=== PATIENT | male | born 1970 | race Caucasian/White ===

== ENCOUNTER 2017-09-11 17:21 | Observation (INO) | payer OTHER ==
[~2017-09-11] VITALS: Ht 175.3 cm; Wt 115.7 kg
[2017-09-11] MEDS ORDERED: ONDANSETRON (ODT) 4 MG TAB ODT STA (17:36)
--- NOTE | 2017-09-11 19:13 | RADRPT ---
PROCEDURE: X-Ray Soft Tissue Neck. CLINICAL INDICATION: Neck pain. Foreign body sensation. Possible chicken bone foreign body. TECHNIQUE: Two views. Frontal and lateral. COMPARISON: No prior studies available for comparison. FINDINGS: The epiglottis is not enlarged. There is no radiopaque foreign body. The prevertebral soft tissues are normal. There are degenerative changes of the the cervical spine with disc space narrowing and osteophytes a t C4-5 and C5-6. The lung apices are normal. IMPRESSION: 1. Degenerative changes at C4-5 and C5-6. 2. No radiopaque foreign body. 3. Otherwise unremarkable radiographs of the soft tissues of the neck. 4. If there is persistent clinical concern regarding a foreign body, correlation with CT scan [place] be considered. RPTAT: QQ .Vignesh Gracia MD, MD Date Time Electronically viewed and signed by .Vignesh Gracia MD, MD on 09/11/2017 19:13 .R/
[2017-09-11] MEDS ORDERED: LIDOCAINE 2% VISC 15 ML CUP PO ONE (19:30)
[2017-09-11] MEDS ORDERED: GLUCAGON 1 MG INJ IM STA (19:44)
--- NOTE | 2017-09-11 21:35 | RADRPT ---
PROCEDURE: CT Neck noncontrast CLINICAL INDICATION: Foreign body TECHNIQUE: Noncontrast CT of the neck was performed. Axial images were obtained through the neck w ith multiplanar reformatted images generated from the axial acquired data. The administered radiatio n dose was CTDI vol = 10.6 mGy, DLP = 256 mGy-cm. One or more of the following dose reduction techn iques were used: automated exposure control, adjustment of the mA and/or kV according to patient siz e and/or use of iterative reconstruction technique. DICOM images are available. COMPARISON: There are no similar studies submitted for comparison. FINDINGS: Evaluation is limited without intravenous contrast. Skull/Brain: The visualized portions of the brain are grossly unremarkable.The visualized orbits are unremarkable. Some mild mucosal thickening is scattered throughout the paranasal sinuses. The bilat eral mastoid air cells are within normal limits. Parotid glands: Unremarkable on this unenhanced examination. Submandibular glands: Unremarkable on this unenhanced examination. Thyroid gland: Unremarkable on this unenhanced examination. Vasculature: Evaluation is limited without intravenous contrast. Lymph nodes: Multiple small lymph nodes are identified in the neck in levels I-V none of which are n ot pathologically enlarged. The lymph nodes are relatively bilateral and symmetric in distribution. Aerodigestive tract: There is streak artifact from dental hardware limiting evaluation of the oral c avity.Evaluation for primary aerodigestive tract lesion is limited without contrast. There is no de finite evidence of aerodigestive tract effacement. Other: The lung apices are unremarkable. Osseous structures: No destructive lytic or blastic osseous lesion is identified. IMPRESSION: No definite mass or fluid collection given limitations. No cervical adenopathy. RPTAT: HIKT .Stanford Girard MD, MD Date Time Electronically viewed and signed by .Stanford Girard MD, MD on 09/11/2017 21:35 .T/
[2017-09-11] MEDS ORDERED: DEXTROSE 5%-0.45% NACL 1,000 ML IV ONE (22:30)
[2017-09-11] MEDS ORDERED: HYDROmorphONE 1 MG/ML SYG IV STA (22:40)
[2017-09-11] MEDS ORDERED: ONDANSETRON 4 MG INJ IV STA (22:40)
[2017-09-11] MEDS ORDERED: METOCLOPRAMIDE 10 MG INJ IV ONE (23:00)
--- NOTE | 2017-09-11 23:45 | ERD ---
ER Documentation Chief Complaint Chief Complaint Complains of foreign body in the throat (MICHELLE KEARNS NP) HPI 47-year-old male complaining of foreign body in his throat. Patient stated that he was eating at work about 10 AM this morning when he felt something stuck in his throat. He thought that may be a piece of chicken bone. Since then, he is unable to eat or drink. He vomits even when he swallows saliva. Shortness of breath. (MICHELLE KEARNS NP) ROS All systems reviewed and are negative except as per history of present illness. (MICHELLE KEARNS NP) Medications Home Meds Active Scripts Metoclopramide Hcl* (Metoclopramide Hcl*) 10 Mg Tablet, 10 MG PO Q6, #120 TAB AC MEALS and HS. Prov:DELMY OHARA NP 09/12/17 Pantoprazole* (Pantoprazole*) 40 Mg Tablet.dr, 40 MG PO BID@06,18, #60 TAB Prov:DELMY OHARA NP 09/12/17 Allergies Allergies: Coded Allergies: morphine (Verified Allergy, Unknown, 09/11/17) PMhx/Soc Medical and Surgical Hx: pt denies Medical Hx History of Surgery: Yes (leg, knee) Anesthesia Reaction: No Hx Neurological Disorder: No Hx Respiratory Disorders: No Hx Cardiac Disorders: No Hx Psychiatric Problems: No Hx Alcohol Use: Yes (social drinker) Hx Substance Use: No Hx Tobacco Use: No (MICHELLE KEARNS NP) Physical Exam Vitals Vital Signs Date Time Temp Pulse Resp B/P Pulse Ox O2 Delivery O2 Flow Rate FiO2 09/11/17 23:00 99.4 92 19 146/99 92 Room Air 09/11/17 17:29 98.3 109 20 173/108 98 (JODIE SHEPHERD DO) Physical Exam General: Well-developed, well-nourished, conscious and coherent, in no distress. Skin: Warm and dry without rash, good texture and turgor Head: Normocephalic without evidence of trauma Eyes: Sclera and conjunctivae normal; pupils equal, round, and reactive to light; extraocular movements are intact Mouth/throat: Mucous membranes are moist. Posterior pharynx clear without erythema or exudates Neck: Supple without meningismus or adenopathy. Carotids are equal. Trachea midline. No bruits or JVD Chest: Normal AP diameter. Good expansion without retractions. Nontender. Lungs are clear to auscultate bilaterally with good tidal volume Heart: Regular rate and rhythm. No murmur, rub, or gallops heard Abdomen: Soft and nontender without masses, guarding, or rebound. Bowel sounds are active. No hepatosplenomegaly Extremities: Full range of motion. Good strength bilaterally. No clubbing, cyanosis, or edema. Peripheral pulses are intact. Sensation intact Neuro: Alert and oriented 4, GCS 15. Cranial nerves grossly intact. Motor and sensory exams nonfocal. Moves all extremities. Speech clear. Gait normal (MICHELLE KEARNS NP) Result Diagram: 09/12/17 0430 09/12/17 0432 Results 24 hrs Current Medications Medications (Trade) Dose Ordered Sig/Aylin Route PRN Reason Start Time Stop Time Status Last Admin Dose Admin Ondansetron HCl (Zofran Odt) 4 mg ONCE STAT ODT 09/11/17 17:36 09/11/17 17:41 DC 09/11/17 17:52 Lidocaine (Xylocaine (Viscous)) 15 ml ONCE ONCE PO 09/11/17 19:30 09/11/17 19:31 DC 09/11/17 19:34 Glucagon 1 mg 1 mg ONCE STAT IM 09/11/17 19:44 09/11/17 19:45 DC 09/11/17 20:03 Dextrose/Sodium Chloride (D5-1/2ns) 1,000 ml @ 1,000 mls/ 60 min Q1H ONCE IV 09/11/17 22:30 09/11/17 23:29 DC 09/11/17 22:53 Hydromorphone HCl (Dilaudid) 1 mg ONCE STAT IV 09/11/17 22:40 09/11/17 22:42 DC 09/11/17 22:53 Metoclopramide HCl (Reglan) 10 mg ONCE ONCE IV 09/11/17 23:00 09/11/17 23:01 DC 09/11/17 22:53 Ondansetron HCl (Zofran Inj) 4 mg ONCE STAT IV 09/11/17 22:40 09/11/17 22:42 DC 09/11/17 22:53 Ondansetron HCl (Zofran Inj) 4 mg BRIDGE ORDER PRN IV NAUSEA AND/OR VOMITING 09/12/17 01:00 09/12/17 15:25 DC Acetaminophen (Tylenol Tab) 650 mg ER BRIDGE PRN PO MILD PAIN/FEVER 09/12/17 01:00 09/12/17 15:25 DC (CORAJODIE ) Results 24 hrs PROCEDURE: X-Ray Soft Tissue Neck. CLINICAL INDICATION: Neck pain. Foreign body sensation. Possible chicken bone foreign body. TECHNIQUE: Two views. Frontal and lateral. COMPARISON: No prior studies available for comparison. FINDINGS: The epiglottis is not enlarged. There is no radiopaque foreign body. The prevertebral soft tissues are normal. There are degenerative changes of the the cervical spine with disc space narrowing and osteophytes at C4-5 and C5-6. The lung apices are normal. IMPRESSION: 1. Degenerative changes at C4-5 and C5-6. 2. No radiopaque foreign body. 3. Otherwise unremarkable radiographs of the soft tissues of the neck. 4. If there is persistent clinical concern regarding a foreign body, correlation with CT scan should be considered. RPTAT: QQ .Vignesh Gracia MD, MD Date Time Electronically viewed and signed by .Vignesh Gracia MD, on 09/11/2017 19:13 .R/ CC: MICHELLE KEARNS NP PROCEDURE: CT Neck noncontrast CLINICAL INDICATION: Foreign body TECHNIQUE: Noncontrast CT of the neck was performed. Axial images were obtained through the neck with multiplanar reformatted images generated from the axial acquired data. The administered radiation dose was CTDI vol = 10.6 mGy, DLP = 256 mGy-cm. One or more of the following dose reduction techniques were used: automated exposure control, adjustment of the mA and/or kV according to patient size and/or use of iterative reconstruction technique. DICOM images are available. COMPARISON: There are no similar studies submitted for comparison. FINDINGS: Evaluation is limited without intravenous contrast. Skull/Brain: The visualized portions of the brain are grossly unremarkable.The visualized orbits are unremarkable. Some mild mucosal thickening is scattered throughout the paranasal sinuses. The bilateral mastoid air cells are within normal limits. Parotid glands: Unremarkable on this unenhanced examination. Submandibular glands: Unremarkable on this unenhanced examination. Thyroid gland: Unremarkable on this unenhanced examination. Vasculature: Evaluation is limited without intravenous contrast. Lymph nodes: Multiple small lymph nodes are identified in the neck in levels I- V none of which are not pathologically enlarged. The lymph nodes are relatively bilateral and symmetric in distribution. Aerodigestive tract: There is streak artifact from dental hardware limiting evaluation of the oral cavity.Evaluation for primary aerodigestive tract lesion is limited without contrast. There is no definite evidence of aerodigestive tract effacement. Other: The lung apices are unremarkable. Osseous structures: No destructive lytic or blastic osseous lesion is identified. IMPRESSION: No definite mass or fluid collection given limitations. No cervical adenopathy. RPTAT: HIKT .Stanford Girard MD, MD Date Time Electronically viewed and signed by .Stanford Girard MD, MD on 09/11/2017 21:35 .T/ CC: MICHELLE KEARNS NP (MICHELLE KEARNS NP) Procedures/MDM 47-year-old male present ED with foreign body sensation in his throat. Both x- ray and CT of the next soft tissue are negative for foreign bodies. Patient is noted to be retching almost continuously. Zofran 4 mg ODT to the patient initially, had no effect. On the advice of Dr. Carter, glucagon 1 mg IM is given. Patient is esophageal spasm had improved after glucagon for some time. But he returned. Zofran and Reglan IV, along with Dilaudid 1 mg IV is then given to the patient on the advice of Dr. Shepherd. Patient appeared to be comfortable at this time. Although imaging is negative, I do not feel comfortable to send patient home because of his esophageal spasm. Patient may still have a esophageal foreign body that is outside the range of the CT scan. I discussed patient with Dr. Shepherd, who also saw the patient. Dr. Shepherd agrees that we need to admit the patient. (MICHELLE KEARNS NP) Evaluated this patient. He is able to swallow his own secretions sometimes we does then vomiting. Negative imaging was still sensation and pain as if something is stuck in his esophagus. Going to admit him for evaluation by endoscopy by [employer] teacher tomorrow. Placed a call to Dr. Granda. I also added 4 mg of morphine, 4 mg of Zofran, 10 mg of Reglan. Feels better but still has the sensation of the foreign body. Notified Dr. Crockett of this will be admitting him to the medical surgical floor.. I followed up on this case and see that the endoscopy has found severe erosive esophagitis. This was causing the foreign body sensation and it is fortunate this was diagnosed in order to begin treating it before significant morbidity began. (JODIE SHEPHERD DO) Departure Diagnosis: Primary Impression: Esophageal foreign body Encounter type: initial encounter Qualified Code: T18.108A - Foreign body in esophagus, initial encounter Condition: Stable MICHELLE KEARNS NP Sep 11, 2017 23:44 JODIE SHEPHERD DO Sep 12, 2017 01:02
[2017-09-12] VITALS (10 sets, daily range): BP systolic 113–148; BP diastolic 71–91; PULSE 64–74; RESP 15–20; TEMP 98; Ht 175.3 cm; Wt 115.7 kg
[2017-09-12] MEDS ORDERED: ACETAMINOPHEN 325 MG TAB PO PRN (01:00)
[2017-09-12] MEDS ORDERED: ONDANSETRON 4 MG INJ IV PRN ×2 (01:00→02:00)
[2017-09-12] MEDS ORDERED: ACETAMINOPHEN 650 MG SUPP PR PRN (02:00)
[2017-09-12] MEDS ORDERED: NACL 0.9% 3 ML SYG IV SCH (02:00)
[2017-09-12] MEDS ORDERED: morphine 2 MG INJ IV PRN (02:00)
[2017-09-12] MEDS: SOD CHLORIDE 0.9% 1,000 ML IV SCH ×2 (02:28→13:42)
[2017-09-12] MEDS ORDERED: KETOROLAC 30 MG INJ IV ONE (02:41)
[2017-09-12] MEDS ORDERED: VITAMIN A & D 5 GM OINT PACKET TOP ONE (02:51)
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
[2017-09-12 05:19] LABS: BASOPHIL # 0.1 10^3/ul (0.0-0.1); BASOPHILS % 0.7 % (0.0-2.0); EOSINOPHILS # 0.1 10^3/ul (0.0-0.5); EOSINOPHILS % 1.4 % (0.0-7.0); LYMPHOCYTES % 19.3 % (15.0-51.0); MEAN CORPUSCULAR HEMOGLOBIN 31.6 pg (29.0-33.0); MEAN CORPUSCULAR HGB CONC 34.1 g/dl (32.0-37.0); MEAN CORPUSCULAR VOLUME 92.6 fl (82.0-101.0); MONOCYTE # 0.9 10^3/ul (0.3-0.9); MONOCYTES % 8.4 % (0.0-11.0); NEUTROPHIL # 7.2 10^3/ul (1.6-7.5); PLATELET COUNT 265 10^3/UL (140-415); RED BLOOD COUNT 4.75 10^6/ul (4.70-6.10); RED CELL DISTRIBUTION WIDTH 12.1 % (11.5-14.5); WHITE BLOOD COUNT 10.3 10^3/ul (4.8-10.8)
[2017-09-12 05:40] LABS: ALBUMIN 4.2 g/dl (3.3-4.9); ALBUMIN/GLOBULIN RATIO 1.5; BILIRUBIN,INDIRECT 0.5 mg/dl (0-1.1); BILIRUBIN,TOTAL 0.5 mg/dl (0.2-1.3); CALCIUM 8.9 mg/dl (8.4-10.2); CHOL/HDL RATIO 4.9 RATIO; CREATININE 1.04 mg/dl (0.61-1.24); POTASSIUM 3.9 mmol/L (3.5-5.1)
[2017-09-12] MEDS ORDERED: PANTOPRAZOLE 40 MG INJ IV SCH (06:00)
[2017-09-12 06:59] LABS: THYROID STIMULATING HORMONE 2.02 MIU/L (0.465-4.680)
[2017-09-12] MEDS ORDERED: KETOROLAC 15 MG INJ IV PRN (07:00)
[2017-09-12 07:44] LABS: INR 1.04; PROTIME 13.6 Sec (12.2-14.2); PT RATIO 1.1
[2017-09-12 07:45] LABS: PARTIAL THROMBOPLASTIN TIME 24.1 Sec (25.0-35.0)
[2017-09-12] MEDS ORDERED: SUGAMMADEX SODIUM 200 MG/2 ML VIAL IV ONE (09:20)
[2017-09-12] MEDS ORDERED: PROPOFOL 40 ML ONE (09:28)
[2017-09-12] MEDS ORDERED: LIDOCAINE 2% (SDV) 5 ML INJ ONE (09:28)
[2017-09-12] MEDS ORDERED: ROCURONIUM 50 MG INJ ONE (09:28)
[2017-09-12] MEDS ORDERED: SUCCINYLCHOLINE CHLORIDE 100 MG/5 ML SYG IV ONE (09:28)
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
--- NOTE | 2017-09-12 09:42 | HPN ---
Date/Time of Note Date/Time of Note DATE: 09/12/17 TIME: 09:42 Interval H&P Admission Note Pt. seen H&P reviewed: No system changes AUNG FISCHER MD Sep 12, 2017 09:42
--- NOTE | 2017-09-12 09:53 | OPPN ---
Date/Time of Note Date/Time of Note DATE: 09/12/17 TIME: 09:48 Proc Note GI Procedure Date 09/12/17 Indication: other (Dysphagia) Pre-procedure Diagnosis Dysphagia/foreign body in the esophagus Post-procedure Diagnosis Impression: No foreign body found in the esophagus Severe erosive/ulcerative esophagitis. Rule out Pulido's esophagus. Biopsies obtained Rule out eosinophilic esophagitis. Biopsies obtained Small hiatal hernia Moderate gastritis. Rule out H. pylori infection. Biopsies obtained Otherwise normal EGD. Plan: PPI therapy i.e. pantoprazole 40 mg twice daily Reglan 10 mg 4 times daily before meals and at bedtime Review pathology Follow-up EGD in 8 weeks to assess healing of esophageal ulcerations Advance diet as tolerated and if tolerated patient appears safe for outpatient management . Procedure Performed: Endoscopy (With biopsies) Surgeon AUNG FISCHER MD See signature line Store Manager none Anesthesia Type: general Anesthesiologist: MAGDY TORRES Tourniquet Time none EBL none Transfusion required none Biopsy 1: Gastric body and antrum Biopsy 2: Distal esophagus Biopsy 3: Midesophagus Grafts/Implants none Tubes/Drains none Complication(s) none Disposition: PACU Procedure Description Preoperative Diagnosis: After informed consent, with the patient/relatives understanding the procedure, its indications, potential risks and complications, including but not limited to : allergic reaction, bleeding, perforation or infection, and after all pertinent questions were answered to the patients satisfaction, the patient/ relatives signed witnessed informed consent. Following this, premedication was administered slowly IV push under careful cardiovascular and respiratory monitoring with pulse oximetry, automatic blood pressure, and radiation monitor. Once the sedative effect was achieved the patient was place in the left lateral decubitus, the panendoscope was introduced and advanced under visual control. Careful examination of the upper gastrointestinal tract, both on insertion as well as withdrawal of the instrument disclosing the following findings: ESOPHAGUS: the mucosa of the entire esophagus was carefully examined and showed the following findings: No foreign body was found in the esophagus. There is severe erythema edema and linear erosions/ulcerations in the distal third of the esophagus. Biopsies were obtained to rule out Pulido's esophagus. There is also a multi-ring appearance in the body of the esophagus raising possibility of eosinophilic esophagitis. Biopsies were obtained. Otherwise the mucosa appears within normal limits. There is no evidence of varices, neoplasm, or stricture. Small hiatal Hernia identified. STOMACH: Upon entrance to the stomach air was insufflated, the gastric howard distended normally. The mucosa of the fundus, body and antrum of the stomach was carefully examined both head-on and on retroflexion, and showed the following findings: There is moderate erythema in the mucosa of the antrum of the stomach. Biopsies were obtained to rule out H. pylori infection. Biopsies obtained. Otherwise the mucosa appears within normal limits with no abnormalities. There is no evidence of ulcers or neoplasm. PYLORUS: The pylorus was carefully examined and showed the following findings: the pylorus appears patent and within normal limits, with no evidence of gastric outlet obstruction. DUODENUM: The duodenal mucosa was carefully examined in the duodenal bulb as well as the second portion of the duodenum and showed the following findings: the mucosa appears unremarkable with no evidence of duodenitis, ulcer or neoplasm. Copies To: CC: AUNG FISCHER MD, MORDO MD Sep 12, 2017 09:53
[2017-09-12] MEDS ORDERED: METOCLOPRAMIDE 10 MG TAB PO SCH (12:00)
--- NOTE | 2017-09-12 13:02 | PDOCDIS ---
Discharge Instructions DIAGNOSIS Discharge Diagnosis Severe erosive/ulcerative esophagitis. Moderate gastritis. CONDITION Patient Condition: Stable HOME CARE INSTRUCTIONS: Diet Instructions: Regular FOLLOW UP/APPOINTMENTS Follow-up Plan Tate Granda MD [facility] Office Address [address] [place] [address] Office OTHER ORDERS: Other Orders: 1. Take a regular, preferably low-cholesterol diet. 2. Take medications as per prescription. 3. Follow-up with outpatient gastroenterology (Dr. Granda) for repeat esophagogastroduodenoscopy in 8 weeks. DELMY OHARA NP Sep 12, 2017 13:02
[2017-09-12] MEDS ORDERED: METO10TA96 PO (13:03)
[2017-09-12] MEDS ORDERED: PANT40TA4 PO (13:03)
--- NOTE | 2017-09-12 15:47 | DS ---
Date/Time of Note Date/Time of Note DATE: 09/12/17 TIME: 15:46 Discharge Summary Admission/Discharge Info Admit Date/Time Sep 12, 2017 at 01:01 Discharge Date/Time Sep 12, 2017 at 15:10 Discharge Diagnosis 1. Severe erosive/ulcerative esophagitis. 2. Moderate gastritis. 3. Obesity. Patient Condition: Stable Consults 1. Tate Granda MD, Gastroenterology. Procedures Esophagogastroduodenoscopy Pre-procedure Diagnosis Dysphagia/foreign body in the esophagus Post-procedure Diagnosis Impression: No foreign body found in the esophagus Severe erosive/ulcerative esophagitis. Rule out Pulido's esophagus. Biopsies obtained Rule out eosinophilic esophagitis. Biopsies obtained Small hiatal hernia Moderate gastritis. Rule out H. pylori infection. Biopsies obtained Otherwise normal EGD. Plan: PPI therapy i.e. pantoprazole 40 mg twice daily Reglan 10 mg 4 times daily before meals and at bedtime Review pathology Follow-up EGD in 8 weeks to assess healing of esophageal ulcerations Advance diet as tolerated and if tolerated patient appears safe for outpatient management. Soft tissue Neck Ultrasound IMPRESSION: No definite mass or fluid collection given limitations. No cervical adenopathy. Hx of Present Illness Chief complaint: Stuck foreign body in throat This is a 47-year-old male complaining of foreign body in his throat. The patient stated that he was eating at work about 10 AM on 09/11/2017 morning when he felt something stuck in his throat. He thought that it may be a piece of chicken bone. Since then, he was unable to eat or drink. He was vomiting even when he swallows liquids and at times even his saliva. While he was in the ED he did receive glucagon IM and Dilaudid which did give him some pain relief. Allergies: Morphine Medications: None Hospital Course The patient was admitted to inpatient setting. Gastroenterology consult was obtained. The patient underwent an esophagogastroduodenoscopy that did not show any evidence of any foreign body in the esophagus. Instead, the EGDscopy be revealed severe erosive esophagitis along with a small hiatal hernia and moderate gastritis. Gastroenterology recommended proton pump inhibitor therapy along with prokinetic therapy and repeating the EGDscopy in 8 weeks to assess healing of the esophageal ulcerations. The patient's pathology results from biopsy are pending at this time. Postprocedure, the patient was started on a soft diet and he was able to tolerate the diet without any gastrointestinal symptoms. Hence the patient was cleared to be discharged home on PPI and prokinetics. The patient is morbidly obese with a BMI of 37.7 kg/m. The patient's hemoglobin A1c was found to be within normal limits. The patient had evidence of some dyslipidemia with elevated total cholesterol and suboptimal LDL. The patient was advised on a low-cholesterol diet. The patient had a stable hospital course and the patient was cleared by gastroenterology to be discharged home. Discharge Instructions 1. Take a regular, preferably low-cholesterol diet. 2. Take medications as per prescription. 3. Follow-up with outpatient gastroenterology (Dr. Granda) for repeat esophagogastroduodenoscopy in 8 weeks. The patient verbalized understanding of the discharge instructions. At this time I would like to thank Dr. Granda for seeing the patient, doing the necessary procedures, and providing clinical recommendations. Case discussed with Dr. Warren. Home Meds Active Scripts Metoclopramide Hcl* (Metoclopramide Hcl*) 10 Mg Tablet, 10 MG PO Q6, #120 TAB AC MEALS and HS. Prov:DELMY OHARA NP 09/12/17 Pantoprazole* (Pantoprazole*) 40 Mg Tablet., 40 MG PO BID@, #60 TAB Prov:DELMY OHARA NP 09/12/17 Follow-up Plan Tate Granda MD [facility] Office Address [address] [id number] Office Primary Care Provider Care Physician No Primary Time spent on discharge: > 30 minutes Pending Labs Laboratory Tests Test 09/12/17 04:30 09/12/17 04:32 White Blood Count 10.310^3/ul (4.8-10.8) Red Blood Count 4.7510^6/ul (4.70-6.10) Hemoglobin 15.0g/dl (14.0-18.0) Hematocrit 44.0% (42.0-52.0) Mean Corpuscular Volume 92.6fl (82.0-101.0) Mean Corpuscular Hemoglobin 31.6pg (29.0-33.0) Mean Corpuscular Hemoglobin Concent 34.1g/dl (32.0-37.0) Red Cell Distribution Width 12.1% (11.5-14.5) Platelet Count 01161^3/UL (140-415) Mean Platelet Volume 9.0fl (7.4-10.4) Neutrophils % 70.0% (39.0-77.0) Lymphocytes % 19.3% (15.0-51.0) Monocytes % 8.4% (0.0-11.0) Eosinophils % 1.4% (0.0-7.0) Basophils % 0.7% (0.0-2.0) Nucleated Red Blood Cells % 0.0/100WBC (0.0-0.0) Neutrophils # 7.210^3/ul (1.6-7.5) Lymphocytes # 2.010^3/ul (0.8-2.9) Monocytes # 0.910^3/ul (0.3-0.9) Eosinophils # 0.110^3/ul (0.0-0.5) Basophils # 0.110^3/ul (0.0-0.1) Nucleated Red Blood Cells # 0.010^3/ul (0.0-0.0) Prothrombin Time 13.6Sec (12.2-14.2) Prothrombin Time Ratio 1.1 INR International Normalized Ratio 1.04 Activated Partial Thromboplast Time 24.1Sec (25.0-35.0) Hemoglobin A1c 5.7% (0-5.9) Sodium Level 149mmol/L (135-144) Potassium Level 3.9mmol/L (3.5-5.1) Chloride Level 111mmol/L (97-110) Carbon Dioxide Level 26mmol/L (21-31) Anion Gap 16 (8-16) Blood Urea Nitrogen 18mg/dl (7-20) Creatinine 1.04mg/dl (0.61-1.24) Glucose Level 87mg/dl (70-220) Calcium Level 8.9mg/dl (8.4-10.2) Total Bilirubin 0.5mg/dl (0.2-1.3) Direct Bilirubin 0.00mg/dl (0.00-0.20) Indirect Bilirubin 0.5mg/dl (0-1.1) Aspartate Amino Transf (AST/SGOT) 24IU/L (15-46) Alanine Aminotransferase (ALT/SGPT) 32IU/L (13-69) Alkaline Phosphatase 63IU/L (42-121) Total Protein 7.0g/dl (6.1-8.1) Albumin 4.2g/dl (3.3-4.9) Globulin 2.80g/dl (1.3-3.2) Albumin/Globulin Ratio 1.50 Triglycerides Level 140mg/dl (0-149) Cholesterol Level 214mg/dl (100-200) LDL Cholesterol, Calculated 143mg/dl HDL Cholesterol 43mg/dl (27-67) Cholesterol/HDL Ratio 4.9RATIO Thyroid Stimulating Hormone (TSH) 2.020MIU/L (0.465-4.680) DELMY OHARA NP Sep 12, 2017 15:47
[2017-09-12] MEDS ORDERED: PANTOPRAZOLE (EC) 40 MG TAB PO SCH (18:00)
== END 2017-09-12 15:10 | disposition home or self-care (01) ==
LOC: FTE 17:21 → MS1 09-12 01:01
PROVIDERS: ADMIT Family Medicine; ATTEND Family Medicine
DX: K22.10 Ulcer of esophagus without bleeding (principal); K29.70 Gastritis, unspecified, without bleeding; K44.9 Diaphragmatic hernia without obstruction or gangrene; E66.01 Morbid (severe) obesity due to excess calories; Z68.37 Body mass index [BMI] 37.0-37.9, adult
CPT/HCPCS: 43239; 70360; 70490; 80053; 80061; 83036; 84443; 85025; 85610; 85730; C9113; G0378; J1170; J1610; J1885; J2405; J2765; J7030; J7042